=== PATIENT | male | born 1985 | race Caucasian/White ===

== ENCOUNTER 2017-12-22 21:32 | Emergency (ER) | payer MEDICAID, SELFPAY, OTHER | END 2017-12-22 23:39 | disposition home or self-care (01) | LOC: M ED 21:32 | DX: F43.0 Acute stress reaction (principal); F43.20 Adjustment disorder, unspecified; S60.221A Contusion of right hand, initial encounter; Y04.8XXA Assault by other bodily force, initial encounter; Y92.89 Other specified places as the place of occurrence of the external cause; F10.10 Alcohol abuse, uncomplicated; F99 Mental disorder, not otherwise specified; F17.200 Nicotine dependence, unspecified, uncomplicated; Z88.8 Allergy status to other drugs, medicaments and biological substances | CPT/HCPCS: 73130 ==

== ENCOUNTER → 2019-10-28 | Outpatient (CLI) | payer SELFPAY ==
[~2019-10-28] MED LIST: HYDR-3715 PO; TYLE325T5 PO
== END ==
LOC: M OUTALCOH 08:04
PROVIDERS: ATTEND Psychiatry & Neurology Addiction Medicine
DX: Z03.89 Encounter for observation for other suspected diseases and conditions ruled out (principal)

== ENCOUNTER 2019-11-04 09:59 | Outpatient (RCR) | payer SELFPAY | END 2019-11-23 | LOC: M OUTALCOH 09:59 | PROVIDERS: ATTEND Psychiatry & Neurology Addiction Medicine | DX: Z03.89 Encounter for observation for other suspected diseases and conditions ruled out (principal) ==